=== PATIENT | female | born 1980 | race Hispanic/Latino ===

== ENCOUNTER → 2018-03-24 08:06 | Outpatient (CLI) | payer OTHER, MEDICAID, SELFPAY ==
--- NOTE | 2018-03-24 08:10 | DI.US.S_ITS ---
PROCEDURE: US OB <= 14 WEEKS FETUS INDICATIONS: DATES OUTSIDE/PRIOR DATING DATA: Last menstrual period (LMP): 01/03/18. LMP-based estimated date of delivery (АЛЕКСАНДР): 10/10/18. First dating scan (date and location): 03/24/18. Estimated date of delivery (АЛЕКСАНДР) from first dating scan: 10/05/18. TECHNIQUE: Real-time scanning was performed of the fetus and maternal pelvic organs, with image documentation. Endovaginal scanning was also performed to better visualize the fetus and maternal ovaries. COMPARISON: None. FINDINGS: Embryo: [place]-rump length measures 5.6 cm corresponding to 12 weeks 2 days. Embryonic heart rate measures 152 beats per minute. Measurement variability in dating: +/- 4 weeks by LMP, +/- 7 days by mean sac diameter (use before 6 weeks gestation if crown-rump length not able to be measured), +/- 5 days by crown-rump length (up to 8 weeks 6 days gestation), +/- 7 days by crown-rump length (up to 13 weeks 6 days gestation). Maternal organs: Ovaries within normal limits for size. Limited images through the kidneys demonstrate no hydronephrosis. IMPRESSION: Single living intrauterine with estimated gestational age of 12 weeks 2 days. Dictated by: Jarrell Molina [facility] Interpreted: Seamus Heath MD on 03/24/2018 at 10:55 Approved by: Seamus Heath M.D. on 03/24/2018 at 13:32
== END ==
PROVIDERS: PCP Obstetrics & Gynecology; Visit Provider Obstetrics & Gynecology
DX: Z34.91 Encounter for supervision of normal pregnancy, unspecified, first trimester (principal); Z3A.12 12 weeks gestation of pregnancy
CPT/HCPCS: 76801; 76817

== ENCOUNTER → 2018-04-12 11:02 | Outpatient (CLI) | payer OTHER, MEDICAID, SELFPAY | PROVIDERS: PCP Obstetrics & Gynecology; Visit Provider Obstetrics & Gynecology | DX: Z34.92 Encounter for supervision of normal pregnancy, unspecified, second trimester (principal) | CPT/HCPCS: 87086 ==

== ENCOUNTER → 2018-06-15 10:49 | Outpatient (CLI) | payer OTHER, MEDICAID, SELFPAY ==
--- NOTE | 2018-06-15 | DI.US.S_ITS ---
PROCEDURE: US OB >= 14 WEEKS FETUS INDICATIONS: 20 WEEK ANATOMICAL SURVEY OUTSIDE/PRIOR DATING DATA: Last menstrual period (LMP): 01/03/2018. LMP-based estimated date of delivery (АЛЕКСАНДР): 10/10/2018. First dating scan (date and location): 03/24/2018. Estimated date of delivery (АЛЕКСАНДР) from first dating scan: 12/06/2018. TECHNIQUE: Real-time scanning was performed of the fetus, with image documentation and biometric measurements. Endovaginal scanning: Not performed COMPARISON: [facility], OB <= 14 WEEKS FETUS, 03/24/2018, 8:21. FINDINGS: General: A single living intrauterine gestation is present. Presentation: Transverse head to the right. Placenta: Placental position is anterior, without previa. Amniotic fluid index: 15.7 cm, normal range is 5-24 cm. heart rate: 139 beats per minute. Maternal cervical canal: 5.5 cm long. Normal lower limit is 2.5 cm. biometrics: Biparietal diameter: 23 weeks 3 days Head circumference: 23 weeks 5 days Abdominal circumference: 24 weeks 4 days Femur length: 23 weeks 2 days Estimated gestational age from initial scan: 24 weeks 0 day. Composite gestational age from present scan: 23 weeks 6 days Estimated weight and percentile: 647 g, 39% for gestational age Measurement variability for biometric dating: +/- 7 days from 14 weeks to 15 weeks 6 days gestation, +/- 10 days from 16 weeks to 21 weeks 6 days gestation, +/- 2 weeks from 22 weeks to 27 weeks 6 days gestation, +/- 3 weeks for 28 weeks gestation or later. weight reference: 4500 g or EFW >90/95% is considered macrosomia or large for gestational age. EFW <10% is small for gestational age. EFW 5% or less is considered intra-uterine growth restriction. Anatomic survey: Neuro: Ventricles are non-dilated at less than 10 mm. Cisterna magna is normal at 3-11 mm. Cerebellum is normal in size and morphology. Nuchal skin fold: Normal at less than 6 mm between 14-21 weeks gestational age. Face: Nose and lips are normal. facial profile suboptimally visualized. Spine: No evidence for spina bifida. Heart: 4-chambered heart is present, with normal ventricular outflow tracts. Diaphragm: Diaphragm is intact. Stomach: Left-sided stomach is present. Kidneys: No hydronephrosis. Normal is less than 5 mm in 2nd trimester, less than 7 mm in 3rd trimester. Cord: 3-vessel cord has orthotopic insertion. Bladder: Normal in size. Extremities: All 4 extremities identified. Left ankle is suboptimally seen. IMPRESSION: 1. A single living intrauterine gestation with appropriate interval growth. 2. facial profile and left ankle suboptimally visualized. Otherwise normal anatomic survey. Dictated by: Jayda Shipman M.D. on 06/15/2018 at 15:28 Approved by: Jayda Shipman M.D. on 06/15/2018 at 18:03
[2018-06-15 14:30] LABS: Appearance Urine UA CLEAR; Bilirubin Urine UA NEGATIVE (NEGATIVE); Color Urine UA YELLOW; Glucose Urine UA NEGATIVE (Negative); Ketones Urine UA NEGATIVE (NEGATIVE); Leukocyte Esterase Urine UA NEGATIVE (NEGATIVE); Nitrite Urine UA NEGATIVE (Negative); Occult Blood Urine UA NEGATIVE (Negative); Protein Urine UA NEGATIVE (Negative); Specific Gravity Urine UA <=1.005 (1.000-1.035); Urobilinogen Urine UA 0.2 E.U./dL (0.2)
== END ==
PROVIDERS: PCP Obstetrics & Gynecology; Visit Provider Nurse Practitioner Obstetrics & Gynecology
DX: Z34.82 Encounter for supervision of other normal pregnancy, second trimester (principal); Z3A.23 23 weeks gestation of pregnancy
CPT/HCPCS: 76811; 81003; 87077; 87086; 87147

== ENCOUNTER → 2018-07-12 10:02 | Outpatient (CLI) | payer OTHER, MEDICAID, SELFPAY ==
[2018-07-12 10:42] LABS: Hematocrit 35.5 % (36-46); Hemoglobin 11.5 g/dL (12.0-16.0); Mean Corpuscular HGB Conc 32.3 % (30-36); Mean Corpuscular Hemoglobin 26.6 PG (26-34); Mean Corpuscular Volume 82.4 fL (80-100); Platelet Count 176 X10^3/uL (150-400); Red Blood Cell Count 4.31 X10^6/uL (4.0-5.2); Red Cell Distribution Width 13.7 % (11.6-14.8); White Blood Cell Count 7.2 X10^3/uL (4.5-11.0)
[2018-07-12 11:14] LABS: Glucose Fasting 82 mg/dL (70-100)
[2018-07-12 11:42] LABS: Thyroid Stimulating Hormone 0.52 uIU/mL (0.47-4.68)
[2018-07-12 12:33] LABS: Glucose Tol Interpretation INTERPRETATION
[2018-07-12 12:43] LABS: Glucose 1 Hour 113 mg/dL (70-170)
[2018-07-12 13:54] LABS: Glucose 2 Hour 110 mg/dL (70-140)
== END ==
PROVIDERS: PCP Obstetrics & Gynecology; Visit Provider Nurse Practitioner Obstetrics & Gynecology
DX: Z34.80 Encounter for supervision of other normal pregnancy, unspecified trimester (principal)
CPT/HCPCS: 36415; 82951; 82952; 84436; 84443; 85027

== ENCOUNTER → 2018-09-06 13:32 | Outpatient (ROUT) | payer OTHER, MEDICAID, SELFPAY | PROVIDERS: PCP Obstetrics & Gynecology; Visit Provider Nurse Practitioner Obstetrics & Gynecology | DX: Z34.93 Encounter for supervision of normal pregnancy, unspecified, third trimester (principal); Z3A.35 35 weeks gestation of pregnancy | CPT/HCPCS: 87081; 87147 ==

== ENCOUNTER 2018-09-15 10:06 | Inpatient (IN) | payer OTHER, MEDICAID, SELFPAY ==
[2018-09-15 11:40] LABS: Add Manual Diff / Slide Review NO; Basophils Absolute Auto 100 /uL (0-100); Basophils Percent Auto 0.8 % (0-2); Eosinophils Absolute Auto 100 /uL (0-450); Eosinophils Percent Auto 1.3 % (2-4); Hematocrit 33.6 % (36-46); Hemoglobin 11.1 g/dL (12.0-16.0); Lymphocytes Absolute Auto 1900 /uL (1100-4500); Lymphocytes Percent Auto 26.6 % (25-40); Mean Corpuscular Hemoglobin 25.8 PG (26-34); Mean Corpuscular Volume 78.2 fL (80-100); Monocytes Absolute Auto 500 /uL (0-900); Monocytes Percent Auto 6.6 % (3-14); Neutrophils Absolute Auto 4500 /uL (1500-7000); Neutrophils Percent Auto 64.7 % (50-75); Platelet Count 145 X10^3/uL (150-400); Red Cell Distribution Width 13.9 % (11.6-14.8)
[2018-09-15] MEDS: PENICILLIN G POTASSIUM 5,000,000 UNIT in DEXTROSE 5% IN WATER 250 ML IV (11:45)
[2018-09-15] MEDS: LACTATED RINGERS 1,000 ML 100 ML IV ×2 (11:45→20:36)
[2018-09-15 12:26] VITALS: BP 127/68
--- NOTE | 2018-09-15 12:58 | PM.OBHP.1 ---
OB HPI History of Present Condition Chief complaint: observation Narrative: Amber Kaur is a 38 year old @ [id number] by sure LMP and 12week US who presents for evaluation of PPROM. [place] LOF after voiding around 0100, clear fluid. Fluid continued to leak after voiding throughout the night. Also passed small dark clot with no bright red bleeding. Has been feeling mild ctx for weeks with no change since LOF. +FM. Declined to come in for evaluation until 1000. Uncomplicated PN care. Transferred in at 22wks. Desires low intervention . Is open to nitrous oxide and epidural for analgesia if needed. Evaluation Evaluation Laboratory results: Laboratory Tests 09/15/18 09/15/18 11:20 11:20 WBC 7.0 RBC 4.30 Hgb 11.1 L Hct 33.6 L MCV 78.2 L MCH 25.8 L MCHC 33.0 RDW 13.9 Plt Count 145 L Neut % (Auto) 64.7 Lymph % (Auto) 26.6 [place] % (Auto) 6.6 Eos % (Auto) 1.3 L Baso % (Auto) 0.8 Neut # (Auto) 4500 Lymph # (Auto) 1900 [place] # (Auto) 500 Eos # (Auto) 100 Baso # (Auto) 100 Blood Type B Positive Antibody Screen Negative 03/22/18: ABO/Rh- B pos, AB screen-negative, HIV-negative, GC/CT-neg/neg, Rubella-immune, HepBsAg-negative, YwcM8y-7.2, TSH-0.17, NIPS-negative/Male 07/12/18: Hgb-11.5, Hct-35.5, Plt-176, 2hr gtt- WNL/82/113/110 09/06/18: GBS-positive [facility] Medical History Advanced maternal age (AMA) in (Acute) Depression affecting (Acute) Social History (System 04/29/18 @ 14:46 by Shania Saucedo) Smoking Status: Never smoker Family History Father Hypertension Social History (Updated 09/15/18 @ 13:11 by Nicole Kathleen, CNM) marital status: number of children: 1 household members: spouse and children do you feel safe at home: Yes Smoking Status: Never smoker during the past year weight has: remained stable well-balanced diet: daily or most days Meds Home Medications Medication Instructions Recorded Confirmed Type fluoxetine 10 mg capsule 10 mg PO DAILY 03/24/18 09/15/18 History 1 tab PO DAILY 03/24/18 09/15/18 History vitamin,calcium,shsffinx-aauz-kccck acid tablet Allergies Allergy/AdvReac Type Severity Reaction Status Date / Time Sulfa (Sulfonamide Allergy Mild Hives Verified 09/15/18 11:08 Antibiotics) Review of Systems Review of Systems All systems reviewed & are unremarkable except as noted in HPI and below Exam Vital Signs (past 8 hours): - 09/15/18 12:26 Blood Pressure 127/68 Narrative Exam Narrative: @ 1100: FHR baseline 135bpm, moderate variability, accels present, no decelerations. Mild ctx Q 2-5 minutes, lasting 60-90 seconds, mild to moderate. CE deferred. Cephalic by Myron's. Scant clear fluid on peripad. OB/External & Speculum: deferred Presentation: vertex Amniotic Fluid: clear Objective Labs Result Diagrams: 09/15/18 11:20 Labs: Laboratory Results - last 24 hr 09/15/18 09/15/18 11:20 11:20 WBC 7.0 RBC 4.30 Hgb 11.1 L Hct 33.6 L MCV 78.2 L MCH 25.8 L MCHC 33.0 RDW 13.9 Plt Count 145 L Neut % (Auto) 64.7 Lymph % (Auto) 26.6 [place] % (Auto) 6.6 Eos % (Auto) 1.3 L Baso % (Auto) 0.8 Neut # (Auto) 4500 Lymph # (Auto) 1900 [place] # (Auto) 500 Eos # (Auto) 100 Baso # (Auto) 100 Blood Type B Positive Antibody Screen Negative Amnisure- positive Assessment and Plan Assessment and Plan Assessment and Plan narrative: A: multipara @ [id number] without sx of infection Not in active labor AMA GBS prophylaxis indicated Thrombocytopenia, not significant Cat I FHR Appropriate for CNM care w/ OB consultation P: Admit, routine orders w/ IV, CBC and T&S. PCN for GBS. May switch to intermittent auscultation, per protocol. Expectant management until adequately treated, then recommend augmentation. Counseled pt on risk of PPROM w/ strong recommendation for labor augmentation. Pt in agreement w/ augmentation this afternoon. Labor support PRN. May have labor analgesia when requested. Notified of pt admit status and POC who agreed w/ CNM management of labor. Peds to admit and will be notified of pt status this afternoon. Reassess at 4:30pm after adequate tx, or sooner, PRN. Time Spent with Patient Total time spent with greater than 50% in coordination of care (as documented) at patient's floor/unit and/or counseling patient:: Greater than 35 minutes
--- NOTE | 2018-09-15 13:19 | P.HPOB_ITS ---
OB HPI History of Present Condition Chief complaint: observation Narrative: Amber Kaur is a 38 year old @ [id number] by sure LMP and 12week US who presents for evaluation of PPROM. [place] LOF after voiding around 0100, clear fluid. Fluid continued to leak after voiding throughout the night. Also passed small dark clot with no bright red bleeding. Has been feeling mild ctx for weeks with no change since LOF. +FM. Declined to come in for evaluation until 1000. Uncomplicated PN care. Transferred in at 22wks. Desires low intervention . Is open to nitrous oxide and epidural for analgesia if needed. Evaluation Evaluation Laboratory results: Laboratory Tests 09/15/18 09/15/18 11:20 11:20 WBC 7.0 RBC 4.30 Hgb 11.1 L Hct 33.6 L MCV 78.2 L MCH 25.8 L MCHC 33.0 RDW 13.9 Plt Count 145 L Neut % (Auto) 64.7 Lymph % (Auto) 26.6 [place] % (Auto) 6.6 Eos % (Auto) 1.3 L Baso % (Auto) 0.8 Neut # (Auto) 4500 Lymph # (Auto) 1900 [place] # (Auto) 500 Eos # (Auto) 100 Baso # (Auto) 100 Blood Type B Positive Antibody Screen Negative 03/22/18: ABO/Rh- B pos, AB screen-negative, HIV-negative, GC/CT-neg/neg, Rubella-immune, HepBsAg-negative, PciG5z-7.2, TSH-0.17, NIPS-negative/Male 07/12/18: Hgb-11.5, Hct-35.5, Plt-176, 2hr gtt- WNL/82/113/110 09/06/18: GBS-positive [facility] Medical History Advanced maternal age (AMA) in (Acute) Depression affecting (Acute) Social History (System 04/29/18 @ 14:46 by Shania Saucedo) Smoking Status: Never smoker Family History Father Hypertension Social History (Updated 09/15/18 @ 13:11 by Nicole Kathleen, CNM) marital status: number of children: 1 household members: spouse and children do you feel safe at home: Yes Smoking Status: Never smoker during the past year weight has: remained stable well-balanced diet: daily or most days Meds Home Medications Medication Instructions Recorded Confirmed Type fluoxetine 10 mg capsule 10 mg PO DAILY 03/24/18 09/15/18 History 1 tab PO DAILY 03/24/18 09/15/18 History vitamin,calcium,hscqxnaz-qwnu-jtjan acid tablet Allergies Allergy/AdvReac Type Severity Reaction Status Date / Time Sulfa (Sulfonamide Allergy Mild Hives Verified 09/15/18 11:08 Antibiotics) Review of Systems Review of Systems All systems reviewed & are unremarkable except as noted in HPI and below Exam Vital Signs (past 8 hours): - 09/15/18 12:26 Blood Pressure 127/68 Narrative Exam Narrative: @ 1100: FHR baseline 135bpm, moderate variability, accels pr esent, no decelerations. Mild ctx Q 2-5 minutes, lasting 60-90 seconds, mild to moderate. CE deferred. Cephalic by Myron's. Scant clear fluid on peripad. OB/External & Speculum: deferred Presentation: vertex Amniotic Fluid: clear Objective Labs Result Diagrams: 09/15/18 11:20 Labs: Laboratory Results - last 24 hr 09/15/18 09/15/18 11:20 11:20 WBC 7.0 RBC 4.30 Hgb 11.1 L Hct 33.6 L MCV 78.2 L MCH 25.8 L MCHC 33.0 RDW 13.9 Plt Count 145 L Neut % (Auto) 64.7 Lymph % (Auto) 26.6 [place] % (Auto) 6.6 Eos % (Auto) 1.3 L Baso % (Auto) 0.8 Neut # (Auto) 4500 Lymph # (Auto) 1900 [place] # (Auto) 500 Eos # (Auto) 100 Baso # (Auto) 100 Blood Type B Positive Antibody Screen Negative Amnisure- positive Assessment and Plan Assessment and Plan Assessment and Plan narrative: A: multipara @ [id number] without sx of infection Not in active labor AMA GBS prophylaxis indicated Thrombocytopenia, not significant Cat I FHR Appropriate for CNM care w/ OB consultation P: Admit, routine orders w/ IV, CBC and T&S. PCN for GBS. May switch to intermittent auscultation, per protocol. Expectant management until adequately treated, then recommend augmentation. Counseled pt on risk of PPROM w/ strong recommendation for labor augmentation. Pt in agreement w/ augmentation this afternoon. Labor support PRN. May have labor analgesia when requested. Notified of pt admit status and POC who agreed w/ CNM management of l abor. Peds to admit and will be notified of pt status this afternoon. Reassess at 4:30pm after adequate tx, or sooner, PRN. Time Spent with Patient Total time spent with greater than 50% in coordination of care (as documented) at patient's floor/unit and/or counseling patient:: Greater than 35 minutes
--- NOTE | 2018-09-15 16:13 | PM.OBPNLAB ---
Date/Time Date Patient Seen: 09/15/18 Time Patient Seen: 16:14 Pain Control Pain control: tolerating well Comments: Pt has been alternating resting and ambulating w/ no change in discomfort or ctx strength, continues to leak clear fluid Pelvic Exam Dilation (cm): 3 Effacement (%): 75 station: -3 Amniotic membrane status: Leaking (clear) Comments: No forebag felt during exam Contractions Contractions on admission: irregular Monitor mode: Palpation Contraction frequency (min): 6 Contraction duration (min): 1 Contraction pattern: Irregular Contraction intensity: Mild Status Comments: FHTs reassuring by intermittent auscultation, rate 120-130, regular, no decreases Assessment and Plan Assessment: induction ongoing Plan: begin patient augmentation
[2018-09-15] MEDS: PENICILLIN G POTASSIUM 3,000,000 UNIT/50 ML FROZ.PIGGY 100 UNIT IV ×2 (16:31→20:37)
[2018-09-15] MEDS: OXYTOCIN PREMIX 30 UNIT/500 ML PLAST..BAG IV (16:32)
--- NOTE | 2018-09-15 20:39 | PM.OBPNLAB ---
Date/Time Date Patient Seen: 09/15/18 Time Patient Seen: 20:40 Pain Control Pain control: epidural Comments: Pt tried labor tub and nitrous oxide which both helped for a short period of time, then requested epidural. Now comfortable after combined spinal/epidural. Pelvic Exam Dilation (cm): 7 Effacement (%): 100 station: -2 (cephalic) Amniotic membrane status: Leaking (clear) Comments: clear fluid w/ bloody show Contractions Date/Time contractions began: Ctx became stron while in tub around 1820 Contractions on admission: irregular Monitor mode: External Pitocin rate (mU/min): 4 Contraction frequency (min): 2 Contraction duration (min): 1 Contraction pattern: Regular Contraction intensity: Strong/Firm Status status: Category ll Heart Rate Baseline: 125 Monitor Accelerations: Present Monitor Decelerations: Variable Monitor Variability: Moderate Assessment and Plan Assessment: active labor Plan: continuous present management
--- NOTE | 2018-09-16 00:42 | PM.OBPRVD ---
Events: Labor < 37 Weeks, Premature Rupture of Membrane and Prolonged Rupture of Membrane Delivery date: 09/16/18 Intrapartal events: Abnormal Labs Cervical ripening method: none Delivery augmentation: pitocin Delivery monitor: external FHT Route of delivery: L&D Laceration Description: Labial (Left labial ) Delivery repair: chromic (4.0) Estimated blood loss (mL): 75 Anesthesia type: Epidural Narrative: Called to room for patient report of rectal pressure. C/C/+1. Pt pushed well with coaching and encouragement. Steady descent of vertex w/ NSVB of a vigorous baby boy in VANESSA position, delivered through 1 loose NC. Easy delivery of the shoulders. placed on maternal abdomen for drying and skin to skin. Remaining 30 units of pitocin in 500mL was started at 300mL/hr for active management of the third stage of labor. After cessation of pulsation, the cord was double clamped and cut and was taken to warmer for exam as respiratory effort was quiet. Hospital cord blood hold sample was collected. Gentle cord traction and single maternal push led to spontaneous, Sch[place]ze delivery of an apparently intact placenta, membranes and 3VC. Fundus immediately firm and bleeding minimal. Inspection revealed a left labial split that was repaired w/ 4.0 chromic in the usual fashion. QBL 75mL. Both mother and baby stable and skin to skin, nursing as I left the room. Baby 1: Infant gender: Male Presentation: vertex position: Right Occiput Anterior Placenta delivery description: Spontaneous cord vessel description: Nuchal Cord score (1 min): 8 (color(1) and respiratory(1)) score (5 min): 9 (color (1)) Plan for aftercare: Routine PP care. Peds to admit stable .
[2018-09-16] MEDS: IBUPROFEN 600 MG TABLET PO ×4 (02:01→23:46)
[2018-09-16] MEDS: LANOLIN OINT 7 GM 1 APPLIC TOP (02:01)
[2018-09-16] MEDS: DERMOPLAST SPRAY 20% 60 ML 1 SPRAY TOP (02:02)
[2018-09-16] MEDS: DOCUSATE 250 MG CAPSULE PO (08:15)
[2018-09-16] MEDS: FLUoxetine 10 MG CAPSULE PO (08:15)
[2018-09-16] MEDS: PRENATAL VIT,CALC/IRON/FOLIC 1 TABLET 1 TAB PO (08:16)
[2018-09-16] MEDS: OXYCODONE IR 5 MG TABLET PO ×2 (14:51→23:46)
--- NOTE | 2018-09-16 19:54 | P.PNOB_ITS ---
Subjective - OB Patient comments: pain well controlled and tolerating diet [place] baby status: doing well feeding status: exclusively breast feeding Narrative: Pt sleeping and at RN station. Pain well controlled w/ PO meds and single dose of oxycodone this afternoon. Ambulating independently. w/ nipple shield independently and without shield w/ RN assistance. Lochia light, no clots. Using ice pack to perineum w/ decreased edema since this am. Was unable to void after delivery. Straight cath for 800mL of urine, then Finney placed. Finney draining clear yellow urine. Date Patient Seen: 09/16/18 Time Patient Seen: 19:50 Exam Vital Signs (past 8 hours): Stable. BP110/69, HR 77, RR 17, T98.8F (temporal) Objective Labs Result Diagrams: 09/15/18 11:20 Assessment & Plan Plan day: 1 plan OB: routine care Comments: D/C Finney in am and anticipate d/c to home tomorrow. Time Spent With Patient Total time spent is greater than 50% in coordination of care (as documented) at patient's floor/unit and/or counseling patient: less than 15 minutes
[2018-09-17] MEDS: IBUPROFEN 600 MG TABLET PO ×2 (05:20→12:33)
--- NOTE | 2018-09-17 07:56 | PM.OBDS.1 ---
Discharge Providers Date of admission: 09/15/18 10:06 Discharge Date: 09/17/18 Primary care physician: Nicole Wang CNM Consults: 09/16/18 01:00 Consult to Health Care Facility Administrator Routine Comment: Discharge provider: Nicole Wang CNM Summary Date Patient Seen: 09/17/18 Time Patient Seen: 08:00 Peripartum Data Infant Delivery Method: Natural Vaginal Laceration description: Labial Episiotomy description: None complications: other (Difficulty voiding, Finney placed for 24 hrs PP) 1: Gender: Male Disposition of : home Status at Discharge Cognitive/behavioral status at discharge: oriented Functional status at discharge: independent ambulation Overall status at discharge: patient is progressing back to baseline Time Spent with Patient Pt ambulating independently. Eager for d/c to home this afternoon. Pain well controlled w/ PO medication. Declines Rx for oxycodone. independently w/ a nipple shield. Tolerating general diet. Has had BM without difficulty. Lochia light, no clots. Showered and dressed. FOB supportive at BS. time spent providing and/or coordinating discharge services: Greater than 30 minutes Objective Labs Result Diagrams: 09/15/18 11:20 Exam Const General: cooperative, healthy appearing and comfortable Orientation: alert Chest Chest: normal inspection of the chest Breast inspection: normal inspection of the breasts Breast Palpation: normal palpation of the breasts External Female Exam: external swelling and tenderness of urethra Other: Fundus @ u-2 periurethra edema decreased, labial and mons edema still present. left labial laceration well approximated. Finney removed by CNM during exam Psych Appearance: grossly normal and well kempt Mental Status: mental status grossly normal Speech and Movement: speech and movement normal Affect: normal affect Attitude: cooperative Thought Process: normal Discharge Plan Discharge Plan Patient Disposition: Home Discharge comment: pending independent voiding Discharge Med Rec/Prescriptions Prescriptions: New ibuprofen 600 mg Tablet 600 mg PO Q6HR PRN (Reason: Pain, Mild (1-3)) 10 Days Qty: 40 RF: 0 acetaminophen 325 mg Tablet 650 mg PO Q6HR PRN (Reason: Pain, Mild (1-3)) 10 Days Qty: 100 RF: 1 Continued fluoxetine 10 mg capsule 10 mg PO DAILY RF: 0 prenat.vits,lani,imb-mepm-khbld tablet 1 tab PO DAILY RF: 0 Follow up/Referrals: Andie Fernando MD [Primary Care Provider] - Provider Discharge Instructions Diet: Diet as Tolerated Activity: As tolerated Skin/Wound/Dressing Care Report to your healthcare provider any signs of infection, such as:: chills, fever and increased pain Discharge Data Primary Care Provider: Andie Fernando Attending Provider: Nicole Wang Admit Date/Time: 09/15/18 10:06
[2018-09-17] MEDS: DOCUSATE 250 MG CAPSULE PO (09:03)
[2018-09-17] MEDS: FLUoxetine 10 MG CAPSULE PO (09:03)
[2018-09-17] MEDS: PRENATAL VIT,CALC/IRON/FOLIC 1 TABLET 1 TAB PO (09:03)
[2018-09-17] MEDS: ACETAMINOPHEN 325 MG TABLET 650 MG PO ×2 (10:13→15:58)
[2018-09-17] MEDS: OXYCODONE IR 5 MG TABLET PO (10:37)
--- NOTE | 2018-09-17 12:16 | PM.OBPN.1 ---
Subjective - OB baby status: nursing well feeding status: exclusively breast feeding Narrative: Called by RN because patient was unable to void. Has been trying for more than 2 hours, able to release trickles of urine, but not empty her bladder. Has tried warm shower, dermaplast and oxycodone for pain. Coping well. Date Patient Seen: 09/17/18 Time Patient Seen: 11:45 Exam Other: Bladder scan estimated 975mL. 12F catheter placed and drained 800mL, then connected to leg bag for discharge w/ plan to leave in place x 2 days. Objective Labs Result Diagrams: 09/15/18 11:20 Assessment & Plan (1) Difficulty in micturition: Problem details: A: difficulty w/ mucturation P: Discharge to home w/ catheter and leg bag in place. Pt instructed on how to maintain, monitor and drain bag. F/U in my office in 2 days for catheter removal Called to discuss plan w/ who was in the OR, left phone message. Status: Acute Current Visit: Yes Time Spent With Patient Total time spent is greater than 50% in coordination of care (as documented) at patient's floor/unit and/or counseling patient: 30 minutes 25 - 35 minutes
[2018-09-17 14:18] VITALS: BP 123/71; PULSE 74; RESP 16; TEMP 36.4
[2018-09-17 14:55] VITALS: BP 123/71; PULSE 74; RESP 16; TEMP 36.4
== END 2018-09-17 16:20 | disposition home or self-care (01) | DRG 560 ==
PROVIDERS: Admitting Provider Nurse Practitioner Obstetrics & Gynecology; PCP Obstetrics & Gynecology; Visit Provider Nurse Practitioner Obstetrics & Gynecology
DX: O99.824 Streptococcus B carrier state complicating childbirth (principal); Z3A.37 37 weeks gestation of pregnancy; Z37.0 Single live birth; O60.14X0 Preterm labor third trimester with preterm delivery third trimester, not applicable or unspecified; O69.81X0 Labor and delivery complicated by cord around neck, without compression, not applicable or unspecified; R39.198 Other difficulties with micturition; O70.0 First degree perineal laceration during delivery; O42.02 Full-term premature rupture of membranes, onset of labor within 24 hours of rupture
CPT/HCPCS: 01967; 85025; 86850; 86900; 86901; G0379; J2540; J2590